=== PATIENT | female | born 1960 | race African-American/Black ===

== ENCOUNTER 2016-11-15 06:40 | Day surgery (SDC) | payer BC ==
[2016-11-08 13:15] LABS: HEMATOCRIT 39.5 % (36.0-48.0); HEMOGLOBIN 12.7 g/dL (12.0-16.0)
[2016-11-08 13:27] LABS: BUN (BLOOD UREA NITROGEN) 13 MG/DL (6-23); CALCIUM, SERUM 9.4 MG/DL (8.5-10.4); CHLORIDE, SERUM 106 MMOL/L (96-112); CO2 (CARBON DIOXIDE) 29 MMOL/L (24-34); CREATININE 0.89 MG/DL (0.55-1.02); GFR AFRICAN AMERICAN 84 ML/MIN (>=60); GFR NON AFRICAN AMERICAN 72 ML/MIN (>=60); GLUCOSE, SERUM 95 MG/DL (60-99); POTASSIUM, SERUM 3.7 MMOL/L (3.5-5.3); SODIUM, SERUM 142 MMOL/L (135-148)
--- NOTE | ~2016-11-15 | OP ---
Record Of Operation [facility] [address] [place]. [address] NAME: MARY ELLEN MOCTEZUMA : 60 STATUS : [facility]#: [id number] AGE: 56 ADM/REG DATE : 11/15/16 MR#: [id number] REPORT SERV DATE: 11/16/16 DICTATED BY: NORTH MARTINEZ DATE: 11/15/16 REPORT STATUS : Draft TRANSCRIBED BY: MODL DATE: 11/15/16 DATE OF PROCEDURE: 11/15/2016 PREOPERATIVE DIAGNOSIS: Chronic tonsillitis. POSTOPERATIVE DIAGNOSIS: Chronic tonsillitis. PROCEDURE: Tonsillectomy. SURGEON: North Martinez M.D. ANESTHESIA: General. COMPLICATIONS: None. COUNTS: All counts correct following the procedure. ESTIMATED BLOOD LOSS: 5 mL. PREOPERATIVE INFORMED CONSENT: We discussed the risks and benefits of surgery including, but not limited to bleeding infection, possible postoperative taste distortion. Consent is on the chart. DESCRIPTION OF OPERATION: The patient was brought to the operating suite and placed on the operating table in the supine position. General endotracheal anesthesia was initiated without incident. The head and neck were cleaned, prepped and draped in the usual sterile fashion. Following this, a Ninfa-Sandeep retractor was carefully inserted into the oral cavity and used to retract the tongue anteriorly and inferiorly to visualize the oropharynx. Following this, the right superior pole of the tonsil was grasped using a tonsillar tenaculum and retracted medially. Using electrocautery, an incision was made down to the anterior tonsillar pillar. Using sharp and blunt dissection with electrocautery, the tonsil was dissected off the underlying pharyngeal musculature, down to the inferior pole where it was transected and sent for permanent pathology. There was minimal bleeding. In a similar fashion as the right, the left tonsil was removed and sent for permanent pathology. Again, there was minimal bleeding. Suction cautery was then performed using a Isela dissector and meticulous technique. Meticulous hemostasis was achieved in both tonsillar fossae. The oral cavity was irrigated with sterile saline and suctioned until clear. The patient was taken out of suspension. The Ninfa-Sandeep retractor was removed. The teeth were noted to be in pre-operative condition. The patient was awakened from anesthesia and taken to the recovery room in stable condition. Record Of Operation [facility] [address] [facility] [place] [address] NAME: MARY ELLEN MOCTEZUMA : 60 STATUS : [facility]#: [id number] AGE: 56 ADM/REG DATE : 11/15/16 MR#: [id number] REPORT SERV DATE: 11/16/16 DICTATED BY: NORTH MARTINEZ DATE: 11/15/16 REPORT STATUS : Draft TRANSCRIBED BY: NILESH DATE: 11/15/16 DELIA/NILESH North Martinez M.D. / [id number] CC: Hiral Martinez Mindi Georgina Bustamante, MD
[~2016-11-15 06:40] MED LIST: KLOR-CON 1010 MEQ PO; NORV5 PO; PROTONIX20 MG PO; PROZAC PO
== END 2016-11-15 17:56 | disposition home or self-care (01) ==
LOC: SDC 06:40
PROVIDERS: Otolaryngology
PROC: 0CTPXZZ Resection of Tonsils, External Approach (ICD-10-PCS; principal; 2016-11-15 09:00)
DX: J35.01 Chronic tonsillitis (principal); I10 Essential (primary) hypertension; K21.9 Gastro-esophageal reflux disease without esophagitis; R19.6 Halitosis; Z79.899 Other long term (current) drug therapy
CPT/HCPCS: 80048; 85014; 85018; 88304; 93005; A9270-GY; J2370; J2405; J2710; J3010